=== PATIENT | female | born 1960 | race Caucasian/White ===

== ENCOUNTER 2016-10-04 18:36 | Inpatient (IN) | payer OTHER ==
[2016-10-04] MEDS ORDERED: NS 500 ML IV ONE (18:41)
[2016-10-04] MEDS ORDERED: IOPAMIDOL (ISOVUE-300) 100 ML BTL ONE (18:45)
[2016-10-04 18:55] LABS: % IMMATURE GRANULYOCYTES 0.2 % (0.0-1.1); ABSOLUTE IMMATURE GRANULOCYTES 0.03 10^3/uL (0.00-0.10); ADD DIFF? NO; ADD MORPH? NO; ADD SCAN? NO; ATYPICAL LYMPHOCYTE FLAG 0 (0-99); FRAGMENT RBC FLAG 0 (0-99); HEMATOCRIT 47.6 % (38.0-47.0); HEMOGLOBIN 15.8 g/dL (12.6-16.3); LEFT SHIFT FLG 0 (0-99); LIPEMIA HEMOLYSIS FLAG 80 (0-99); MEAN CELL HEMOGLOBIN 31.5 pg (27.9-34.1); MEAN CELL HEMOGLOBIN CONCENTR. 33.2 g/dL (32.4-36.7); MEAN PLATELET VOLUME 10.5 fL (8.7-11.7); PLATELET CLUMPS FLAG 10 (0-99); PLATELET COUNT 339 10^3/uL (150-400); RED BLOOD CELL COUNT 5.01 10^6/uL (4.18-5.33); RED CELL DISTRIBUTION WIDTH 12.5 % (11.5-15.2)
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
[2016-10-04 19:04] LABS: INR 0.93 (0.83-1.16); PROTIME(PATIENT) 12.4 SEC (12.0-15.0)
[2016-10-04 19:05] LABS: APTT 26.4 SEC (23.0-38.0)
[2016-10-04 19:07] LABS: ANION GAP 16 mEq/L (8-16); CALCIUM 9.5 mg/dL (8.5-10.4); CARBON DIOXIDE 22 mEq/l (22-31); CHLORIDE 104 mEq/L (97-110); ETHANOL SERUM < 10 mg/dL (0-10); GLOMERULAR FILTRATION RATE 58; GLUCOSE 96 mg/dL (70-100); POTASSIUM 3.3 mEq/L (3.5-5.2); SODIUM 142 mEq/L (134-144)
[2016-10-04] MEDS ORDERED: ONDANSETRON 4 MG/2 ML VIAL ONE ×2 (19:20→19:21)
[2016-10-04] MEDS ORDERED: PROMETHAZINE HCL 25 MG/ML INJ ONE (20:21)
[2016-10-04] MEDS ORDERED: PROMETHAZINE HCL 25 MG/ML INJ IVP ONE ×2 (20:22→22:08)
[2016-10-04] MEDS ORDERED: HYDROmorphONE/DILAUDID 1 MG/ML SYR IVP ONE ×2 (20:53→21:50)
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
[2016-10-04] MEDS ORDERED: D5W 1/2 NS 1,000 ML IV SCH (23:30)
[2016-10-04] MEDS ORDERED: PROMETHAZINE HCL 25 MG/ML INJ IVP PRN (23:33)
[2016-10-04] MEDS ORDERED: HYDROmorphONE/DILAUDID 1 MG/ML SYR IVP PRN (23:34)
[2016-10-04] MEDS ORDERED: HYDROmorphONE/DILAUDID 6 MG/30 ML PCA IV PRN (23:36)
[2016-10-04] MEDS ORDERED: NALOXONE HCL 0.4 MG/ML INJ IVP PRN (23:36)
[2016-10-04] MEDS: HYDROCODONE/APAP 5/325 TAB PO PRN (23:53)
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
[2016-10-05] MEDS: ONDANSETRON DISINTEGRATING 4 MG TAB PO PRN ×3 (04:27→18:02)
[2016-10-05] MEDS ORDERED: BUPIVACAINE/EPI 0.5% 30 ML SDV ONE (06:51)
[2016-10-05] MEDS ORDERED: MIDAZOLAM 2 MG/2 ML VIAL IVP ONE (06:54)
[2016-10-05] MEDS ORDERED: CLINDAMYCIN 900 MG/DEXTROSE 50 ML IV ONE (06:58)
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
[2016-10-05] MEDS ORDERED: fentaNYL 100 MCG/2 ML INJ ONE ×2 (07:03→07:57)
[2016-10-05] MEDS ORDERED: ONDANSETRON 4 MG/2 ML VIAL IVP ONE (07:03)
[2016-10-05] MEDS ORDERED: LIDOCAINE 2% 5 ML SDV ONE (07:03)
--- NOTE | 2016-10-05 07:03 | PDHPUP ---
History & Physical Update H&P update statement: This history and physical update is based on an assessment of the patient which was completed after admission or registration (within 24 hours), but prior to the surgery/procedure.
[2016-10-05] MEDS ORDERED: ONDANSETRON 4 MG/2 ML VIAL ONE (07:04)
[2016-10-05] MEDS ORDERED: DEXAMETHASONE 4 MG/ML VIAL ONE (07:04)
[2016-10-05] MEDS ORDERED: PROPOFOL 200 MG/20 ML VIAL ONE (07:04)
[2016-10-05] MEDS ORDERED: LR 1,000 ML IV ONE (07:25)
[2016-10-05] MEDS ORDERED: ALBUTEROL 3 ML DEYVIAL IH PRN (08:25)
[2016-10-05] MEDS ORDERED: OXYCODONE/APAP 5/325 TAB PO PRN (08:25)
[2016-10-05] MEDS ORDERED: NALOXONE HCL 0.4 MG/ML INJ IVP PRN (08:25)
[2016-10-05] MEDS ORDERED: fentaNYL 100 MCG/2 ML INJ IVP PRN ×2 (08:25)
[2016-10-05] MEDS ORDERED: PROMETHAZINE HCL 25 MG/ML INJ IVP PRN (08:25)
[2016-10-05] MEDS ORDERED: ONDANSETRON 4 MG/2 ML VIAL IVP PRN (08:25)
[2016-10-05] MEDS ORDERED: HYDROmorphONE/DILAUDID 1 MG/ML SYR IVP PRN ×2 (08:25)
[2016-10-05] MEDS ORDERED: MEPERIDINE 25 MG/ML SYR IVP PRN (08:25)
[2016-10-05] MEDS ORDERED: ACETAMINOPHEN 500 MG TAB PO PRN (08:25)
--- NOTE | 2016-10-05 09:05 | POSTOPPROG ---
Post Op Note Date of Operation: 10/05/16 Surgeon: Jaren Eubanks Records Technician: none Anesthesiologist: Aurelio Anesthesia: GET(General Endotracheal) Pre-op Diagnosis: L clavicle orif Post-op Diagnosis: same Indication: above Procedure: left clavicle orif Inf/Abcess present in the surg proc area at time of surgery?: No EBL: Minimal
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
[2016-10-05] MEDS: HYDROCODONE/APAP 5/325 TAB PO PRN ×2 (10:14→18:02)
--- NOTE | 2016-10-05 14:07 | WOCRNPDOC ---
[facility] Advanced Assessment Note - Skin Integrity Problem, Advanced Assess Left Ankle Laceration Dressing Type: Gauze, Kerlix, Xeroform Dressing Description: Clean/Dry, Intact Exudate Amount: Scant Exudate Color: Reddish/Yellow Exudate Characteristic(s): Serosanguinous Integumentary Issue Intervention: Visualized Under Dressing Sherry Wound Tissue: Erythema, Swollen Sherry Wound Swelling: Mild Wound Bed Color: Brown, Red Wound Bed Constitution: Smooth Tissue (non-granular), Scab Site Odor: None Site Measurement - Head-to-Toe Length X Width X Depth (cm): [id number] area of scattered abrasions Skin Integrity Problem Comment: Abrasions noted over L lateral ankle, a mix of scabs and shallow, partial-thickness areas. There is one small area, 0.6cmx0.5, of ecchymotic tissue medially that appears to be filling in; no appreciable depth when assessed w/ q-tip. Recommend keeping site covered and moist; skin tear protocol is appropriate, w/ the addtion of Silvasorb gel.
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
[2016-10-05] MEDS ORDERED: MAGNESIUM HYDROXIDE 30 ML UDCUP PO PRN (18:32)
[2016-10-05] MEDS ORDERED: BISACODYL 10 MG SUPP PR PRN (18:32)
[2016-10-05] MEDS ORDERED: LACTULOSE 20 GM/30 ML UDCUP PO PRN (18:32)
[2016-10-05] MEDS ORDERED: POLYETHYLENE GLYCOL 3350 17 GM PKT PO PRN (18:32)
[2016-10-05] MEDS: SENNOSIDES/DOCUSATE SODIUM TAB PO SCH (20:27)
[2016-10-05] MEDS: CIPROFLOXACIN 3.5 GM OPHT.OINT LEFTEYE SCH (20:28)
[2016-10-06] MEDS: ONDANSETRON DISINTEGRATING 4 MG TAB PO PRN ×6 (00:08→23:20)
[2016-10-06] MEDS: HYDROCODONE/APAP 5/325 TAB PO PRN ×5 (00:08→17:23)
[2016-10-06 06:04] LABS: COLOR YELLOW; LEUKOCYTE ESTERASE,URINE NEGATIVE (NEGATIVE); NITRITE,URINE NEGATIVE (NEGATIVE)
[2016-10-06] MEDS: CETIRIZINE 10 MG TAB PO SCH (09:40)
[2016-10-06] MEDS: SENNOSIDES/DOCUSATE SODIUM TAB PO SCH ×2 (09:40→20:55)
[2016-10-06] MEDS: CIPROFLOXACIN 3.5 GM OPHT.OINT LEFTEYE SCH ×3 (09:54→20:55)
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
[2016-10-06] MEDS: DIAZEPAM 5 MG TAB PO PRN ×2 (10:13→23:20)
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
--- NOTE | 2016-10-06 12:22 | SOAPPROG ---
Downtime Inpatient MD Late Entry SOAP Note: I discussed possible discharge today with David and she remains tenetive. She is worried that she cannot bear weight on her LLE and will be unable to use crutches due to her clavicle. She lives in a 3 story. Will request scooter from PT. continue supportive care. Odette Clayton MD, FACS
[2016-10-06] MEDS ORDERED: HYDROmorphONE/DILAUDID 4 MG TAB PO PRN (19:02)
[2016-10-06] MEDS: oxyCODONE IR 5 MG TAB PO PRN (23:20)
[2016-10-07] MEDS: oxyCODONE IR 5 MG TAB PO PRN ×2 (05:40→09:56)
[2016-10-07] MEDS: ONDANSETRON DISINTEGRATING 4 MG TAB PO PRN ×2 (05:40→09:24)
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
[2016-10-07 08:37] VITALS: RESP 18
[2016-10-07] MEDS: SENNOSIDES/DOCUSATE SODIUM TAB PO SCH (09:56)
[2016-10-07] MEDS: CETIRIZINE 10 MG TAB PO SCH (09:57)
[2016-10-07] MEDS: CIPROFLOXACIN 3.5 GM OPHT.OINT LEFTEYE SCH (09:57)
[2016-10-07 11:36] VITALS: BP 146/99; PULSE 87; TEMP 99.4; O2SAT 94
== END 2016-10-07 15:39 | disposition home or self-care (01) | DRG 516 ==
LOC: EDUNIT# → F3N 22:35
PROVIDERS: ADMIT Surgery; ATTEND Surgery
PROC: 0PSB04Z Reposition Left Clavicle with Internal Fixation Device, Open Approach (ICD-10-PCS; principal; 2016-10-05 07:15)
DX: S42.022A Displaced fracture of shaft of left clavicle, initial encounter for closed fracture (principal); S06.0X0A Concussion without loss of consciousness, initial encounter; S22.42XA Multiple fractures of ribs, left side, initial encounter for closed fracture; S80.812A Abrasion, left lower leg, initial encounter; S82.392A Other fracture of lower end of left tibia, initial encounter for closed fracture; V28.4XXA Motorcycle driver injured in noncollision transport accident in traffic accident, initial encounter; Y92.412 Parkway as the place of occurrence of the external cause; Y99.8 Other external cause status
CPT/HCPCS: 82947-QW; 92523-GN; 96374; 97116-GP; 97161-GP; 97165-GO; 97530-GP; 97535-GO; C1713; G0480; J1100; J1170; J2250; J2310; J2405; J2550; J2704; J3010; Q9967

== ENCOUNTER → 2017-02-10 | Outpatient (CLI) | payer OTHER | LOC: SBRMNEURO 20:00 | PROVIDERS: ATTEND Psychiatry & Neurology Sleep Medicine | DX: G47.33 Obstructive sleep apnea (adult) (pediatric) (principal) ==